=== PATIENT | male | born 1985 | race Caucasian/White ===

== ENCOUNTER 2017-01-06 15:16 | Emergency (ER) | payer SELFPAY ==
[~2017-01-06] VITALS: Wt 70.0 kg
[2017-01-06] MEDS ORDERED: LIDOCAINE 1% (MDV) 20 ML INJ SC ONE (18:00)
[2017-01-06] MEDS ORDERED: DIPHTH/TET/ACEL PERTUSS (ADULT) 0.5 ML VIAL IM* ONE (18:30)
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
== END 2017-01-06 18:57 | disposition left against medical advice (07) ==
LOC: FTE 15:16
DX: S31.119A Laceration without foreign body of abdominal wall, unspecified quadrant without penetration into peritoneal cavity, initial encounter (principal); F17.210 Nicotine dependence, cigarettes, uncomplicated; W25.XXXA Contact with sharp glass, initial encounter; Y92.9 Unspecified place or not applicable

== ENCOUNTER 2019-03-27 23:39 | Emergency (ER) | payer SELFPAY ==
[~2019-03-27] VITALS: Ht 170.2 cm; Wt 72.7 kg
[2019-03-27 23:48] VITALS: Ht 170.2 cm; Wt 72.7 kg
[2019-03-28] MEDS ORDERED: ONDANSETRON 4 MG INJ IV STA (00:06)
[2019-03-28] MEDS ORDERED: HYDROmorphONE 1 MG/ML SYG IV STA (00:06)
--- NOTE | 2019-03-28 01:07 | ERD ---
ER Documentation Chief Complaint Chief Complaint Hernia pain HPI This 33-year-old male has a chronic history of a right inguinal hernia. He says that he wears a tight belt around this area to keep it inside of the abdomen but that he said he took a shower and waited too long to put the belt back on and the hernia came out and started causing him pain with vomiting 1 hour prior to arrival. He is currently in bed laying on his right side and feels minimal pain he says he wants me to give him some pain medication so we can try to push it back in on his own which he frequently does ROS All systems reviewed and are negative except as per history of present illness. Allergies Allergies: Coded Allergies: No Known Allergy (Unverified , 10/05/15) PMhx/Soc History of Surgery: No Anesthesia Reaction: No Hx Neurological Disorder: No Hx Respiratory Disorders: No Hx Cardiac Disorders: No Hx Psychiatric Problems: No Hx Miscellaneous Medical Probl: No Hx Alcohol Use: No Hx Substance Use: Yes (METH ) Hx Tobacco Use: Yes (5 cigarettes a day) Smoking Status: Current some day smoker FmHx Family History: No coronary disease Physical Exam Vitals Vital Signs Date Temp Pulse Resp B/P (MAP) Pulse Ox O2 O2 Flow FiO2 Time Delivery Rate 03/27/19 97.0 94 18 129/78 97 23:48 (95) Physical Exam Const: No acute distress Head: Atraumatic Eyes: Normal Conjunctiva ENT: Normal External Ears, Nose and Mouth. Neck: Full range of motion. No meningismus. Resp: Clear to auscultation bilaterally Cardio: Regular rate and rhythm, no murmurs Abd: Soft, non tender, non distended. Normal bowel sounds, palpable right inguinal hernia that is tender no skin discoloration Skin: No petechiae or rashes Back: No midline or flank tenderness Ext: No cyanosis, or edema Neur: Awake and alert Psych: Normal Mood and Affect Results 24 hrs Current Medications Medications Dose Sig/Abraham Start Time Status Last (Trade) Ordered Route PRN Stop Time Admin Dose Reason Admin 1 mg ONCE STAT 03/28/19 DC 03/28/19 Hydromorphone IV 00:06 00:15 HCl 03/28/19 00:12 (Dilaudid) Ondansetron 4 mg ONCE STAT 03/28/19 DC 03/28/19 HCl (Zofran IV 00:06 00:15 Inj) 03/28/19 00:12 Procedures/MDM Patient was given a milligram of Dilaudid and he was able to self reduce his hernia. The patient says his back place again he is able to stand up and ambulate in the ED without pain Departure Diagnosis: Primary Impression: Hernia Condition: Stable Patient Instructions: Hernia (Inguinal, Ventral, Umbilical) Referrals: HANNA CHAVARRIA MD, APOSTOLOS A. DO March 28, 2019 01:07
[2019-03-28 01:10] VITALS: BP 111/70; PULSE 88; RESP 18
== END 2019-03-28 01:13 | disposition home or self-care (01) ==
LOC: E/R 23:39
DX: K40.90 Unilateral inguinal hernia, without obstruction or gangrene, not specified as recurrent (principal); F17.210 Nicotine dependence, cigarettes, uncomplicated
CPT/HCPCS: 96374; 96375; 99284; J1170; J2405

== ENCOUNTER 2019-06-11 15:29 | Inpatient (IN) | payer MEDICAID ==
[~2019-06-11] VITALS: Ht 162.6 cm; Wt 70.0 kg
[~2019-06-11 15:29] MED LIST: HYDR-3601 PO
[2019-06-11 15:33] VITALS: Ht 162.6 cm; Wt 70.0 kg
[2019-06-11] MEDS ORDERED: SOD CHLORIDE 0.9% 1,000 ML IV STA (15:41)
[2019-06-11] MEDS ORDERED: ONDANSETRON 4 MG INJ IV STA (15:41)
[2019-06-11] MEDS ORDERED: HYDROmorphONE 1 MG/ML SYG IV STA (15:41)
--- NOTE | 2019-06-11 18:03 | ERD ---
ER Documentation Chief Complaint Chief Complaint abdominal pain related to his hernia pain started today HPI 33-year-old gentleman with long-standing history of indirect inguinal hernia who presents to the emergency room with abdominal pain. He states that earlier this morning the hernia came out and he cannot get it back in. The pain is moderate to severe. He denies any nausea or vomiting. No constipation. He has not followed up with a general surgeon as an outpatient. ROS All systems reviewed and are negative except as per history of present illness. Medications Home Meds No Active Prescriptions or Reported Meds Allergies Allergies: Coded Allergies: No Known Allergy (Unverified , 06/11/19) PMhx/Soc History of Surgery: No Anesthesia Reaction: No Hx Neurological Disorder: No Hx Respiratory Disorders: No Hx Cardiac Disorders: No Hx Psychiatric Problems: No Hx Miscellaneous Medical Probl: Yes (LARGE INGUINAL HERNIA TO GROIN) Hx Alcohol Use: No Hx Substance Use: Yes (METH ) Hx Tobacco Use: Yes (5 cigarettes a day) Smoking Status: Current every day smoker FmHx Family History: No diabetes Physical Exam Vitals Vital Signs Date Temp Pulse Resp B/P (MAP) Pulse Ox O2 O2 Flow FiO2 Time Delivery Rate 06/11/19 98.9 98 20 146/92 98 15:33 (110) Physical Exam General: Well developed, well nourished, no acute distress Head: Normocephalic, atraumatic. Eyes: Pupils equally reactive, EOM intact ENT: Moist mucous membranes Neck: Supple, no lymphadenopathy Respiratory: Lungs clear bilaterally, no distress Cardiovascular: RRR, no murmurs, rubs, or gallops Abdominal: Soft, non-tender, non-distended, no peritoneal signs : Large indirect inguinal hernia into the right scrotal contents and sac MSK: No edema, no unilateral swelling, 5/5 strength Neurologic: Alert and oriented, moving all extremities, normal speech, no focal weakness, no cerebellar signs Skin: No rash Psych: Normal mood Result Diagram: 06/11/19 1557 06/11/19 1557 Results 24 hrs Laboratory Tests Test 06/11/19 15:57 06/11/19 16:03 White Blood Count 10.4 10^3/ul Red Blood Count 5.52 10^6/ul Hemoglobin 15.9 g/dl Hematocrit 46.8 % Mean Corpuscular Volume 84.8 fl Mean Corpuscular Hemoglobin 28.8 pg Mean Corpuscular Hemoglobin Concent 34.0 g/dl Red Cell Distribution Width 13.1 % Platelet Count 271 10^3/UL Mean Platelet Volume 9.4 fl Immature Granulocytes % 0.300 % Neutrophils % 80.2 % Lymphocytes % 14.5 % Monocytes % 4.0 % Eosinophils % 0.7 % Basophils % 0.3 % Nucleated Red Blood Cells % 0.0 /100WBC Immature Granulocytes # 0.030 10^3/ul Neutrophils # 8.4 10^3/ul Lymphocytes # 1.5 10^3/ul Monocytes # 0.4 10^3/ul Eosinophils # 0.1 10^3/ul Basophils # 0.0 10^3/ul Nucleated Red Blood Cells # 0.0 10^3/ul Prothrombin Time 12.2 Sec Prothrombin Time Ratio 1.0 INR International Normalized Ratio 0.89 Activated Partial Thromboplast Time 25.6 Sec Sodium Level 141 mmol/L Potassium Level 3.8 mmol/L Chloride Level 103 mmol/L Carbon Dioxide Level 25 mmol/L Anion Gap 13 Blood Urea Nitrogen 19 mg/dl Creatinine 0.76 mg/dl Est Glomerular Filtrat Rate mL/min > 60 mL/min Glucose Level 117 mg/dl Calcium Level 9.6 mg/dl POC Venous Lactate 2.4 mmol/L Current Medications Medications Dose Sig/Abraham Start Time Status Last (Trade) Ordered Route PRN Stop Time Admin Dose Reason Admin Sodium 1,000 ml @ Q1H STAT 06/11/19 DC 06/11/19 Chloride 1,000 mls/hr IV 15:41 06/11/19 16:07 16:40 1 mg ONCE STAT 06/11/19 DC 06/11/19 Hydromorphone IV 15:41 06/11/19 16:06 HCl 15:43 (Dilaudid) Ondansetron 4 mg ONCE STAT 06/11/19 DC 06/11/19 HCl (Zofran IV 15:41 06/11/19 16:06 Inj) 15:43 Procedures/MDM EKG, MONITORS, & DIAGNOSTIC IMAGING: CT abdomen and pelvis: CT concerning for incarcerated hernia LAB INTERPRETATION: I reviewed the laboratory testing and it shows slightly elevated lactic acid MEDICAL DECISION MAKING: Patient presents with inguinal hernia, indirect. Concern for possible incarceration, lower concern for strangulation. Dr. Da Silva, general surgeon on- call was actually in the emergency room and came to the bedside to evaluate the patient. He attempted manual reduction without success. Patient was minimally compliant with the process and procedure. CT imaging will be obtained to rule out incarceration or strangulation. Patient was placed in Trendelenburg and direct gentle pressure was applied for attempted gradual reduction. ER COURSE: * Patient's pain is well controlled but hernia has not been reduced. The pa tient has evidence of incarceration and warrants hospitalization. Dr. Da Silva aware CONSULTATION: None DISPOSITION PLAN: Accepting care team and consultations: I discussed the current laboratory data, diagnostic imaging and emergency care provided. Admitting team: Dr. Padilla Admitting team indication: Insurance directed Departure Diagnosis: Primary Impression: Abdominal pain Abdominal location: generalized Qualified Codes: R10.84 - Generalized abdominal pain Additional Impression: Incarcerated right inguinal hernia Condition: Stable LUIS FERNANDO MELLO MD Jun 11, 2019 18:03
[2019-06-11] MEDS ORDERED: ACETAMINOPHEN 325 MG TAB PO PRN ×2 (18:30→19:30)
[2019-06-11] MEDS ORDERED: ONDANSETRON 4 MG INJ IV PRN ×3 (18:30→23:30)
[2019-06-11] MEDS ORDERED: hydrALAzine 20 MG INJ IV PRN (19:30)
[2019-06-11] MEDS ORDERED: HYDROCODONE/APAP (5/325) TAB PO PRN ×2 (19:30→23:30)
[2019-06-11] MEDS ORDERED: MAGNESIUM HYDROXIDE 30ML CUP PO PRN (19:30)
[2019-06-11] MEDS ORDERED: ALBUTEROL/IPRATROPIUM (NEB) 3 ML AMP HHN PRN (19:30)
[2019-06-11] MEDS ORDERED: LORAZEPAM 2 MG INJ IV PRN (19:30)
[2019-06-11] MEDS ORDERED: NITROGLYCERIN (SL) 0.4 MG TAB SL PRN (19:30)
[2019-06-11] MEDS ORDERED: DOCUSATE SODIUM 100 MG CAP PO PRN (19:30)
[2019-06-11] MEDS ORDERED: morphine 2 MG INJ IV PRN ×2 (19:30→23:30)
[2019-06-11] MEDS ORDERED: NACL 0.9% 3 ML SYG IV SCH (19:30)
[2019-06-11] MEDS ORDERED: BUPIVACAINE 0.25%/EPI (SDV) 30 ML INJ ONE (20:30)
[2019-06-11] MEDS ORDERED: LEVOFLOXACIN 750MG/D5W (PMX) 150 ML IVPB SCH (21:00)
--- NOTE | 2019-06-11 21:14 | CONS ---
Assessment/Plan Assessment/Plan Assessment/Plan (Daily) Incarcerated right inguinal hernia. Patient needs a urgent repair of right inguinal hernia. We discussed risks and benefits were discussed possible side effects, possible complications including but not limited to bleeding, infection, injury to other organs, possible bowel resection, anesthesia complication, hernia recurrence, patient understood risk and benefits and wished to proceed. Consultation Date/Type/Reason Admit Date/Time Jun 11, 2019 at 18:15 Date of Consultation: Jun 11, 2019 Type of Consult Surgical Reason for Consultation Incarcerated inguinal hernia Date/Time of Note DATE: 06/11/19 TIME: 21:12 Hx of Present Illness 53-year-old otherwise healthy male with a 10 years history of right inguinal hernia, never seek surgical attention. Presented with a irreducible bulge in the right groin. Constitutional: no complaints, improved Eyes: no complaints ENT: no complaints Respiratory: no complaints Cardiovascular: no complaints Gastrointestinal: no complaints Genitourinary: no complaints Musculoskeletal: no complaints Skin: no complaints Neurologic: no complaints Endocrine: no complaints Lymphatic: no complaints Psychological: no complaints, nl mood/affect Immunologic: no complaints Past Medical History Medical History: no pertinent history Home Meds No Active Prescriptions or Reported Meds Medications Current Medications Ondansetron HCl (Zofran Inj) 4 mg BRIDGE ORDER PRN IV NAUSEA/VOMITING; Start 06/11/19 at 18:30; Stop 06/12/19 at 18:29 Acetaminophen (Tylenol Tab) 650 mg ER BRIDGE PRN PO .MILD PAIN 1-3 OR TEMP; Start 06/11/19 at 18:30; Stop 06/12/19 at 18:29 IV Flush (NS 3 ml) 3 ml PER PROTOCOL IV ; Start 06/11/19 at 19:30 Ondansetron HCl (Zofran Inj) 4 mg Q6H PRN IV NAUSEA/VOMITING; Start 06/11/19 at 19:30 Acetaminophen (Tylenol Tab) 650 mg Q6H PRN PO .PAIN 1-3 OR TEMP; Start 06/11/19 at 19:30 Acetaminophen/ Hydrocodone Bitart ([place] (5/325)) 1 tab Q6H PRN PO .MOD PAIN 4- 6; Start 06/11/19 at 19:30 Morphine Sulfate (morphine) 2 mg Q4H PRN IV .SEVERE PAIN 7-10; Start 06/11/19 at 19:30 Docusate Sodium (Colace) 100 mg Q12H PRN PO .CONSTIPATION; Start 06/11/19 at 19:30 Magnesium Hydroxide (Milk Of Mag) 30 ml DAILY PRN PO .CONSTIPATION; Start 06/11/19 at 19:30 Heparin Sodium (Porcine) (Heparin (5000 Units/1ml)) 5,000 unit Q12 SC ; Start 06/11/19 at 21:00 Lorazepam (Ativan) 0.5 mg Q6H PRN IV ANXIETY; Start 06/11/19 at 19:30 Sodium Chloride 1,000 ml @ 100 mls/hr Q10H IV ; Start 06/11/19 at 19:23 Albuterol/ Ipratropium (Duoneb) 3 ml Q4H RESP THERAPY PRN HHN SHORTNESS OF BREATH; Start 06/11/19 at 19:30 Levofloxacin/ Dextrose 150 ml @ 100 mls/hr Q24H IVPB ; Start 06/11/19 at 21:00 Hydralazine HCl (Apresoline) 10 mg Q6H PRN IV ELEVATED BLOOD PRESSURE; Start 06/11/19 at 19:30 Nitroglycerin (Nitroglycerin (Sl Tab) 0.4 Mg) 1 tab Q5M PRN SL ANGINA; Start 06/11/19 at 19:30 Allergies: Coded Allergies: No Known Allergy (Unverified , 06/11/19) Social History Smoking Status: Current every day smoker Exam/Review of Systems Exam Vitals Vital Signs Date Temp Pulse Resp B/P (MAP) Pulse Ox O2 O2 Flow FiO2 Time Delivery Rate 06/11/19 98.5 61 20 113/80 100 Room Air 20:30 (91) Constitutional: alert, oriented, well developed Psych: no complaints, nl mood/affect Head: normocephalic, atraumatic Eyes: nl conjunctiva, EOMI, nl lids, nl sclera, PERRL ENMT: nl external ears & nose, nl lips & teeth, nl nasal mucosa & septum Neck: supple, non-tender Respiratory: clear to auscultation, normal air movement Cardiovascular: regular rate and rhythm, nl pulses Gastrointestinal: soft, nl liver, spleen, non-tender, other (Irreducible tender inguinal scrotal hernia in the right groin.) Musculoskeletal: nl extremities to inspection, nl gait and stance Extremities: normal pulses Neurological: S[employer]IENT [employer]OR II-XII intact, nl mental status, nl speech, nl strength Skin: nl turgor; No rash or lesions Lymph: nl lymph nodes Results Result Diagram: 06/11/19 1557 06/11/19 1557 Results 24hrs Laboratory Tests Test 06/11/19 15:57 06/11/19 16:03 White Blood Count 10.4 Red Blood Count 5.52 Hemoglobin 15.9 Hematocrit 46.8 Mean Corpuscular Volume 84.8 Mean Corpuscular Hemoglobin 28.8 L Mean Corpuscular Hemoglobin Concent 34.0 Red Cell Distribution Width 13.1 Platelet Count 271 Mean Platelet Volume 9.4 Immature Granulocytes % 0.300 Neutrophils % 80.2 H Lymphocytes % 14.5 L Monocytes % 4.0 Eosinophils % 0.7 Basophils % 0.3 Nucleated Red Blood Cells % 0.0 Immature Granulocytes # 0.030 Neutrophils # 8.4 H Lymphocytes # 1.5 Monocytes # 0.4 Eosinophils # 0.1 Basophils # 0.0 Nucleated Red Blood Cells # 0.0 Prothrombin Time 12.2 Prothrombin Time Ratio 1.0 INR International Normalized Ratio 0.89 Activated Partial Thromboplast Time 25.6 Sodium Level 141 Potassium Level 3.8 Chloride Level 103 Carbon Dioxide Level 25 Anion Gap 13 Blood Urea Nitrogen 19 Creatinine 0.76 Est Glomerular Filtrat Rate mL/min > 60 Glucose Level 117 Calcium Level 9.6 Free Thyroxine 1.18 POC Venous Lactate 2.4 *H Medications Medication Current Medications Ondansetron HCl (Zofran Inj) 4 mg BRIDGE ORDER PRN IV NAUSEA/VOMITING; Start 06/11/19 at 18:30; Stop 06/12/19 at 18:29 Acetaminophen (Tylenol Tab) 650 mg ER BRIDGE PRN PO .MILD PAIN 1-3 OR TEMP; Start 06/11/19 at 18:30; Stop 06/12/19 at 18:29 IV Flush (NS 3 ml) 3 ml PER PROTOCOL IV ; Start 06/11/19 at 19:30 Ondansetron HCl (Zofran Inj) 4 mg Q6H PRN IV NAUSEA/VOMITING; Start 06/11/19 at 19:30 Acetaminophen (Tylenol Tab) 650 mg Q6H PRN PO .PAIN 1-3 OR TEMP; Start 06/11/19 at 19:30 Acetaminophen/ Hydrocodone Bitart ([place] (5/325)) 1 tab Q6H PRN PO .MOD PAIN 4- 6; Start 06/11/19 at 19:30 Morphine Sulfate (morphine) 2 mg Q4H PRN IV .SEVERE PAIN 7-10; Start 06/11/19 at 19:30 Docusate Sodium (Colace) 100 mg Q12H PRN PO .CONSTIPATION; Start 06/11/19 at 19:30 Magnesium Hydroxide (Milk Of Mag) 30 ml DAILY PRN PO .CONSTIPATION; Start 06/11/19 at 19:30 Heparin Sodium (Porcine) (Heparin (5000 Units/1ml)) 5,000 unit Q12 SC ; Start 06/11/19 at 21:00 Lorazepam (Ativan) 0.5 mg Q6H PRN IV ANXIETY; Start 06/11/19 at 19:30 Sodium Chloride 1,000 ml @ 100 mls/hr Q10H IV ; Start 06/11/19 at 19:23 Albuterol/ Ipratropium (Duoneb) 3 ml Q4H RESP THERAPY PRN HHN SHORTNESS OF BREATH; Start 06/11/19 at 19:30 Levofloxacin/ Dextrose 150 ml @ 100 mls/hr Q24H IVPB ; Start 06/11/19 at 21:00 Hydralazine HCl (Apresoline) 10 mg Q6H PRN IV ELEVATED BLOOD PRESSURE; Start 06/11/19 at 19:30 Nitroglycerin (Nitroglycerin (Sl Tab) 0.4 Mg) 1 tab Q5M PRN SL ANGINA; Start 06/11/19 at 19:30 SYLVIA CLEMENT MD Jun 11, 2019 21:14
--- NOTE | 2019-06-11 21:37 | PREAC ---
Date/Time of Note Date/Time of Note DATE: 06/11/19 TIME: 21:34 Anesthesia Eval and Record Evaluation Time Pre-Procedure Interview DATE: 06/11/19 TIME: 21:34 Age 33 Sex male NPO: 8 hrs Preoperative diagnosis incarcerated right inguinal hernia Planned procedure R inguinal hernia repair with mesh poss bowel mresection Past Medical History Past Medical History: Includes Pulm: Smoking Hx Recreational drugs: Other (met) Surgery & Anesthesia Issues No known issue Meds Anticoagulation: No Beta Geronimo within 24 hr: No Reason Beta Geronimo not given: Pt. not on B-Geronimo No Active Prescriptions or Reported Meds Current Medications Ondansetron HCl (Zofran Inj) 4 mg BRIDGE ORDER PRN IV NAUSEA/VOMITING; Start 06/11/19 at 18:30; Stop 06/12/19 at 18:29 Acetaminophen (Tylenol Tab) 650 mg ER BRIDGE PRN PO .MILD PAIN 1-3 OR TEMP; Start 06/11/19 at 18:30; Stop 06/12/19 at 18:29 IV Flush (NS 3 ml) 3 ml PER PROTOCOL IV ; Start 06/11/19 at 19:30 Ondansetron HCl (Zofran Inj) 4 mg Q6H PRN IV NAUSEA/VOMITING; Start 06/11/19 at 19:30 Acetaminophen (Tylenol Tab) 650 mg Q6H PRN PO .PAIN 1-3 OR TEMP; Start 06/11/19 at 19:30 Acetaminophen/ Hydrocodone Bitart ([place] (5/325)) 1 tab Q6H PRN PO .MOD PAIN 4- 6; Start 06/11/19 at 19:30 Morphine Sulfate (morphine) 2 mg Q4H PRN IV .SEVERE PAIN 7-10; Start 06/11/19 at 19:30 Docusate Sodium (Colace) 100 mg Q12H PRN PO .CONSTIPATION; Start 06/11/19 at 19:30 Magnesium Hydroxide (Milk Of Mag) 30 ml DAILY PRN PO .CONSTIPATION; Start 06/11/19 at 19:30 Heparin Sodium (Porcine) (Heparin (5000 Units/1ml)) 5,000 unit Q12 SC ; Start 06/11/19 at 21:00 Lorazepam (Ativan) 0.5 mg Q6H PRN IV ANXIETY; Start 06/11/19 at 19:30 Sodium Chloride 1,000 ml @ 100 mls/hr Q10H IV ; Start 06/11/19 at 19:23 Albuterol/ Ipratropium (Duoneb) 3 ml Q4H RESP THERAPY PRN HHN SHORTNESS OF BREATH; Start 06/11/19 at 19:30 Levofloxacin/ Dextrose 150 ml @ 100 mls/hr Q24H IVPB ; Start 06/11/19 at 21:00 Hydralazine HCl (Apresoline) 10 mg Q6H PRN IV ELEVATED BLOOD PRESSURE; Start 06/11/19 at 19:30 Nitroglycerin (Nitroglycerin (Sl Tab) 0.4 Mg) 1 tab Q5M PRN SL ANGINA; Start 06/11/19 at 19:30 Meds reviewed: Yes Allergies Coded Allergies: No Known Allergy (Unverified , 06/11/19) Allergies Reviewed: Yes Labs/Studies Labs Reviewed: Reviewed by anesthesiologist Result Diagram: 06/11/19 1557 06/11/19 1557 Laboratory Tests 06/11/19 15:57 test: N/A Pre-procedure Exam Last vitals Vital Signs Date Temp Pulse Resp B/P (MAP) Pulse Ox O2 O2 Flow FiO2 Time Delivery Rate 06/11/19 98.5 61 20 113/80 100 Room Air 20:30 (91) Airway: Adequate mouth opening Mallampati: Mallampati I Teeth: Normal Lung: Normal Heart: Normal ASA Physical Status ASA physical status: 2 Emergency: None Planned Anesthetic General/MAC: ETT Nerve block: TAP (bilateral) Planned Pain Management Single shot nerve block, Parenteral pain med Pre-operative Attestations Prior to commencing anesthesia and surgery, the patient was re-evaluated, there was verification of: *The patient's identity *The results of appropriate recent lab work and preoperative vital signs *The above evaluation not changing prior to induction *Anesthetic plan, risk benefits, alternative and complications discussed with patient/family; questions answered; patient/family understands, accepts and wishes to proceed. SHANNON THOMAS MD Jun 11, 2019 21:37
[2019-06-11] MEDS ORDERED: PROPOFOL 20 ML ONE (21:42)
[2019-06-11] MEDS ORDERED: MIDAZOLAM 1 MG/ML 2 ML INJ ONE (21:42)
[2019-06-11] MEDS ORDERED: SUCCINYLCHOLINE CHLORIDE 100 MG/5 ML SYG IV ONE (21:42)
[2019-06-11] MEDS ORDERED: METOCLOPRAMIDE 10 MG INJ ONE (21:43)
[2019-06-11] MEDS: SOD CHLORIDE 0.9% 1,000 ML IV SCH (21:44)
[2019-06-11] MEDS ORDERED: ONDANSETRON 4 MG INJ ONE (22:01)
[2019-06-11] MEDS ORDERED: CEFAZOLIN 1 GM INJ ONE (22:04)
[2019-06-11] MEDS ORDERED: ETOMIDATE 20 MG INJ ONE (22:22)
[2019-06-11] MEDS ORDERED: ROCURONIUM 50 MG INJ ONE (22:22)
[2019-06-11] MEDS ORDERED: BACITRACIN 50000 UNITS INJ ONE (22:34)
[2019-06-11] MEDS ORDERED: POLYMYXIN B 500000 UNIT INJ ONE (22:35)
[2019-06-11] MEDS ORDERED: ROPIVACAINE 0.5 % 30 ML VIAL ONE (22:57)
[2019-06-11] MEDS ORDERED: GLYCOPYRROLATE 0.4 MG INJ ONE (23:10)
[2019-06-11] MEDS ORDERED: NEOSTIGMINE 3 MG/3 ML SYRINGE ONE (23:10)
--- NOTE | 2019-06-11 23:21 | OPR ---
Date/Time of Note Date/Time of Note DATE: 06/11/19 TIME: 23:16 Operative Report Procedure Date: Jun 11, 2019 Preoperative Diagnosis Incarcerated right inguinal hernia Postoperative Diagnosis Incarcerated right inguinal hernia, indirect, cord lipoma. Operation/Procedure Performed Repair of the incarcerated right inguinal indirect hernia. Excision of the cord lipoma. Surgeon see signature line Repeater Operator None Anesthesia Type: general Anesthesiologist: SHANNON THOMAS MD Estimated Blood Loss: minimal Transfusion none Specimen Specimen is the hernia sac and cord lipoma Grafts/Implants none Complications none Pt Condition Post Procedure: stable Disposition: PACU Indications Incarcerated right inguinal hernia with elevated lactate. Procedure Description The patient was brought to operating room positioned supine general endotracheal anesthesia was induced. The urinary bladder was decompressed with a Patton catheter. Prophylaxis antibiotics were given. The abdomen was prepped and draped in usual sterile fashion. After injection of local anesthetic in the right groin the transverse incision was performed that was carried down to the external oblique aponeurosis. The external oblique aponeurosis was opened along its fibers. The external ring was divided. After that I was able to pull out the hernia sac of the scrotum. The hernia sac was opened the small bowel was examined and it was found to be viable the incarcerated part of the cecum was also examined and was also found to be viable. The bowel was reduced back to the abdominal cavity. The hernia sac was dissected off the cord structures taking care to avoid injury to nerves. After that the hernia sac was suture ligated and amputated. The stump of the sac was reduced into the preperitoneal area. After that the hemostasis was confirmed and the wound was irrigated with antibiotics. The piece of keyhole Prolene mesh was placed on the floor of the inguinal canal and secured to the pubis and inguinal ligament with running 2-0 Ethibond suture. In addition the upper part of the mesh was secured with a loose interrupted sutures to the conjoined ligament. The new internal ring was created by approximating the limbs of the mesh and suturing it down to the inguinal ligament. Before placement of the mesh the cord lipoma was identified was dissected off and excised. Hemostasis was again confirmed the the wound was irrigated with antibiotics. The external oblique aponeurosis was closed over the cord structures with running 2-0 Vicryl suture. The subcutaneous tissue was approximated with interrupted 3-0 Vicryl sutures. The skin was closed with running 4-0 Monocryl sutures. Sterile dressing was applied. Next instrument and sponge counts were correct x2. Patient was extubated and tr ansferred to recovery room. Before that the Patton catheter was removed. SYLVIA CLEMENT MD Jun 11, 2019 23:21
[2019-06-11] MEDS ORDERED: KETOROLAC 30 MG INJ ONE (23:26)
[2019-06-11 23:30] VITALS: BP 135/75; PULSE 77; RESP 20
[2019-06-11] MEDS ORDERED: CEFTRIAXONE 1 GM/50 ML (PMX) 50 ML IVPB SCH (23:30)
[2019-06-11] MEDS ORDERED: DIPHENHYDRAMINE 50 MG INJ IV PRN (23:30)
[2019-06-11] MEDS ORDERED: KETOROLAC 30 MG INJ IV PRN (23:30)
[2019-06-11] MEDS ORDERED: BETHANECHOL 25 MG TAB PO PRN (23:30)
[2019-06-11] MEDS ORDERED: HYDROmorphONE 0.5 MG/0.5 ML SYG IV PRN (23:30)
[2019-06-11] MEDS ORDERED: DIPHENHYDRAMINE 25 MG CAP PO PRN (23:30)
[2019-06-11] MEDS ORDERED: METOCLOPRAMIDE 10 MG INJ IV PRN (23:30)
[2019-06-11 23:35] VITALS: BP 148/77; PULSE 78; RESP 15
[2019-06-11 23:40] VITALS: BP 135/79; PULSE 66; RESP 14
[2019-06-11 23:45] VITALS: BP 133/85; PULSE 66; RESP 14
[2019-06-11 23:55] VITALS: BP 132/84; PULSE 72; RESP 17
[2019-06-12] VITALS: BP 136/80; PULSE 98; RESP 17
[2019-06-12 00:05] VITALS: BP 133/85; PULSE 68; RESP 17
[2019-06-12 00:10] VITALS: BP 140/83; PULSE 92; RESP 14
[2019-06-12 00:15] VITALS: BP 136/87; PULSE 68; RESP 16
[2019-06-12] MEDS: HEPARIN 5,000 UNIT/1 ML VIAL SC SCH ×2 (01:01→09:56)
[2019-06-12] MEDS: D5W-0.45 NACL + KCL 20 MEQ 1,000 ML IV SCH ×2 (01:12→09:12)
[2019-06-12] MEDS: SOD CHLORIDE 0.9% 1,000 ML IV SCH (05:23)
--- NOTE | 2019-06-12 08:08 | HP ---
Date/Time of Note Date/Time of Note DATE: 06/12/19 TIME: 08:03 Assessment/Plan VTE Prophylaxis Risk score (from Ns)>0 risk: 2 SCD applied (from Ns): Yes Pharmacological prophylaxis: NA/contraindicated Pharm contraindication: low risk/ambulating, other (Just had surgery for incarcerated hernia) Lines/Catheters IV [facility]ter [facility] (from [facility]): Peripheral IV Assessment/Plan Assessment/Plan 33-year-old male with a history of hernia presents with abdominal pain with radiation to his groin. He status post hernia repair, currently in a very stable condition. PLAN -Advance diet as tolerated -As needed pain meds -Encourage early ambulation -Discharge when cleared by surgery Result Diagram: 06/12/19 0445 06/12/19 0445 Results 24hrs Laboratory Tests Test 06/11/19 15:57 06/11/19 16:03 06/12/19 04:45 White Blood Count 10.4 10.7 Red Blood Count 5.52 4.46 L Hemoglobin 15.9 13.2 L Hematocrit 46.8 38.6 L Mean Corpuscular Volume 84.8 86.5 Mean Corpuscular Hemoglobin 28.8 L 29.6 Mean Corpuscular Hemoglobin Concent 34.0 34.2 Red Cell Distribution Width 13.1 13.2 Platelet Count 271 226 Mean Platelet Volume 9.4 9.5 Immature Granulocytes % 0.300 0.400 Neutrophils % 80.2 H 68.9 Lymphocytes % 14.5 L 20.5 Monocytes % 4.0 8.4 Eosinophils % 0.7 1.5 Basophils % 0.3 0.3 Nucleated Red Blood Cells % 0.0 0.0 Immature Granulocytes # 0.030 0.040 H Neutrophils # 8.4 H 7.4 Lymphocytes # 1.5 2.2 Monocytes # 0.4 0.9 Eosinophils # 0.1 0.2 Basophils # 0.0 0.0 Nucleated Red Blood Cells # 0.0 0.0 Prothrombin Time 12.2 Prothrombin Time Ratio 1.0 INR International Normalized Ratio 0.89 Activated Partial Thromboplast Time 25.6 Sodium Level 141 138 Potassium Level 3.8 4.0 Chloride Level 103 103 Carbon Dioxide Level 25 29 Anion Gap 13 6 Blood Urea Nitrogen 19 15 Creatinine 0.76 0.75 Est Glomerular Filtrat Rate mL/min > 60 > 60 Glucose Level 117 100 Calcium Level 9.6 8.4 Free Thyroxine 1.18 POC Venous Lactate 2.4 *H Phosphorus Level 4.2 Magnesium Level 1.7 Triglycerides Level 43 Cholesterol Level 119 LDL Cholesterol, Calculated 78 HDL Cholesterol 32 Cholesterol/HDL Ratio 3.7 Thyroid Stimulating Hormone (TSH) 1.170 HPI/ROS Admit Date/Time Admit Date/Time Jun 11, 2019 at 18:15 Hx of Present Illness Patient is a 33-year-old male with a history of hernia who presented to ER complaining of abdominal pain radiating to his groin. Imaging in the ER with findings consistent with incarcerated hernia involving the cecum and distal ileum with adjacent fat stranding and fluid. Patient already underwent repair of the incarcerated hernia. Currently he is feeling well. Denies abdominal pain, nausea/vomiting. He tolerated liquid diet. He is not sure whether or not he has been passing gas. He is basically however soft. Patient asked whether or not he is going to be discharged today saying that he has a 15-year-old Chihuahua and a 5-year-old daughter that needs his attention. PMH/Family/Social Past Medical History Medical History: other (See HPI) Medications Current Medications Ondansetron HCl (Zofran Inj) 4 mg BRIDGE ORDER PRN IV NAUSEA/VOMITING; Start 06/11/19 at 18:30; Stop 06/12/19 at 18:29 Acetaminophen (Tylenol Tab) 650 mg ER BRIDGE PRN PO .MILD PAIN 1-3 OR TEMP; Start 06/11/19 at 18:30; Stop 06/12/19 at 18:29 IV Flush (NS 3 ml) 3 ml PER PROTOCOL IV Last administered on 06/12/19at 01:13; Admin Dose 3 ML; Start 06/11/19 at 19:30 Ondansetron HCl (Zofran Inj) 4 mg Q6H PRN IV NAUSEA/VOMITING; Start 06/11/19 at 19:30 Acetaminophen (Tylenol Tab) 650 mg Q6H PRN PO .PAIN 1-3 OR TEMP; Start 06/11/19 at 19:30 Acetaminophen/ Hydrocodone Bitart (Severn (5/325)) 1 tab Q6H PRN PO .MOD PAIN 4- 6; Start 06/11/19 at 19:30 Morphine Sulfate (morphine) 2 mg Q4H PRN IV .SEVERE PAIN 7-10; Start 06/11/19 at 19:30 Docusate Sodium (Colace) 100 mg Q12H PRN PO .CONSTIPATION; Start 06/11/19 at 19:30 Magnesium Hydroxide (Milk Of Mag) 30 ml DAILY PRN PO .CONSTIPATION; Start 06/11/19 at 19:30 Heparin Sodium (Porcine) (Heparin (5000 Units/1ml)) 5,000 unit Q12 SC Last administered on 06/12/19at 01:01; Admin Dose 5,000 UNIT; Start 06/11/19 at 21:00 Lorazepam (Ativan) 0.5 mg Q6H PRN IV ANXIETY; Start 06/11/19 at 19:30 Sodium Chloride 1,000 ml @ 100 mls/hr Q10H IV ; Start 06/11/19 at 19:23 Albuterol/ Ipratropium (Duoneb) 3 ml Q4H RESP THERAPY PRN HHN SHORTNESS OF BREATH; Start 06/11/19 at 19:30 Levofloxacin/ Dextrose 150 ml @ 100 mls/hr Q24H IVPB Last administered on 06/12/19at 02:21; Admin Dose 100 MLS/HR; Start 06/11/19 at 21:00 Hydralazine HCl (Apresoline) 10 mg Q6H PRN IV ELEVATED BLOOD PRESSURE; Start 06/11/19 at 19:30 Nitroglycerin (Nitroglycerin (Sl Tab) 0.4 Mg) 1 tab Q5M PRN SL ANGINA; Start 06/11/19 at 19:30 Ceftriaxone Sodium 50 ml @ 100 mls/hr Q24H IVPB Last administered on 06/12/19at 01:05; Admin Dose 100 MLS/HR; Start 06/11/19 at 23:30 Metoclopramide HCl (Reglan) 10 mg Q6H PRN IV NAUSEA AND/OR VOMITING; Start 06/11/19 at 23:30 Ondansetron HCl (Zofran Inj) 4 mg Q6H PRN IV NAUSEA AND/OR VOMITING; Start 06/11/19 at 23:30 Ketorolac Tromethamine (Toradol) 30 mg Q6H PRN IV PAIN; Start 06/11/19 at 23:30; Stop 06/14/19 at 23:29 Hydromorphone HCl (Dilaudid) 0.5 mg Q4H PRN IV PAIN LEVEL 8-10; Start 06/11/19 at 23:30 Morphine Sulfate (morphine) 2 mg Q2H PRN IV PAIN LEVEL 8-10; Start 06/11/19 at 23:30 Acetaminophen/ Hydrocodone Bitart (Severn (5/325)) 1 tab Q6H PRN PO PAIN LEVEL 4-7; Start 06/11/19 at 23:30 Potassium Chloride/Dextrose/ Sod Cl 1,000 ml @ 100 mls/hr Q10H IV Last administered on 06/12/19at 01:12; Admin Dose 100 MLS/HR; Start 06/11/19 at 23:12 Diphenhydramine HCl (Benadryl) 25 mg Q6H PRN IV PRURITUS; Start 06/11/19 at 23:3 0 Diphenhydramine HCl (Benadryl) 25 mg Q6H PRN PO PRURITUS; Start 06/11/19 at 23:30 Bethanechol Chloride (Urecholine) 25 mg URINARY CATH D/C PRN PO UNABLE TO VOID; Start 06/11/19 at 23:30 Coded Allergies: No Known Allergy (Unverified , 06/11/19) Past Surgical History Past Surgical Hx: other (See HPI) Family History Significant Family History: no pertinent family hx Social History Alcohol Use: occasionally Smoking Status: Current some day smoker Drug Use: other (Meth) Exam/Review of Systems Vital Signs Vitals Vital Signs Date Temp Pulse Resp B/P (MAP) Pulse Ox O2 O2 Flow FiO2 Time Delivery Rate 06/12/19 68 16 136/87 99 Room Air 00:15 (103) 06/11/19 98.3 23:40 Intake and Output 06/11/19 06/11/19 06/12/19 1515:00 23:00 07:00 IntakeIntake Total 3060 ml OutputOutput Total 320 ml BalanceBalance 2740 ml Exam Constitutional: alert, oriented, well developed Head: normocephalic, atraumatic Eyes: EOMI, PERRL Respiratory: clear to auscultation, normal air movement Cardiovascular: regular rate and rhythm, nl pulses Gastrointestinal: soft, other (Surgical site is covered. Abdomen is soft, nontender) Extremities: normal pulses JAKOB COHEN MD Jun 12, 2019 08:08
[2019-06-12 08:35] VITALS: BP 118/77; PULSE 114; RESP 18
--- NOTE | 2019-06-12 10:20 | PAC ---
Date/Time of Note Date/Time of Note DATE: 06/12/19 TIME: 10:19 Post-Anesthesia Notes Post-Anesthesia Note Last documented vital signs Vital Signs Date Temp Pulse Resp B/P (MAP) Pulse Ox O2 O2 Flow FiO2 Time Delivery Rate 06/12/19 98.3 114 18 118/77 99 08:35 (91) 06/12/19 Room Air 00:15 Activity: WNL Respiratory function: WNL Cardiovascular function: WNL Mental status: Baseline Pain reasonably controlled: Yes Hydration appropriate: Yes Nausea/Vomiting absent: No SHANNON THOMAS MD Jun 12, 2019 10:20
--- NOTE | 2019-06-12 10:36 | PDOCDIS ---
Discharge Instructions CONDITION [id number] Patient Condition: [id number] Stable FOLLOW UP/APPOINTMENTS Follow-up Plan 1. Please follow-up with Dr. Charli Da Silva within 1 week, phone number will be provided to you by nurse 2. Please follow-up with your primary care provider. MARY DUARN Jun 12, 2019 10:36
--- NOTE | 2019-06-12 10:38 | DS ---
Date/Time of Note Date/Time of Note DATE: 06/12/19 TIME: 10:38 Discharge Summary Admission/Discharge Info Admit Date/Time Jun 11, 2019 at 18:15 Discharge Date/Time Patient Condition: Stable Hospital Course Patient is a male with a past medical history significant for hernia who presents to [facility] with abdominal and groin pain. Patient was diagnosed with incarcerated hernia and was taken into emergent surgery by general surgeon. Patient is doing very well this morning, surgery cleared patient to be discharged without any antibiotics. Patient's surgeon stated that he received antibiotics just as a prophylactic measure right after surgery. Patient does not need more to buttocks per general surgeon and will be discharged to follow-up with general surgeon within 1 week. Patient doing well, minimal pain, already passing gas, tolerating diet. Discharge diagnosis Incarcerated inguinal hernia Abdominal pain, resolved Lactic acidosis, secondary to above incarcerating hernia Anemia, very mild, monitor Home Meds Active Scripts Hydrocodone Bit-Acetaminophen (Hydrocodone Bit-APAP) 5-325MG Tablet, 1 TAB PO Q6H PRN for PAIN LEVEL 4-7, #10 TAB Prov:MARY DURAN 06/12/19 Follow-up Plan 1. Please follow-up with Dr. Charli Da Silva within 1 week, phone number will be provided to you by nurse 2. Please follow-up with your primary care provider. Primary Care Provider Care Physician No Primary Time spent on discharge: > 30 minutes Pending Labs Laboratory Tests Test 06/11/19 15:57 06/11/19 16:03 06/12/19 04:45 White Blood Count 10.4 10.7 10^3/ul (4.8-10.8) 10^3/ul (4.8-10.8) Red Blood Count 5.52 4.46 10^6/ul (4.70-6.10) 10^6/ul (4.70-6.10 ) Hemoglobin 15.9 13.2 g/dl (14.0-18.0) g/dl (14.0-18.0) Hematocrit 46.8 % (42.0-52.0) 38.6 % (42.0-52.0) Mean Corpuscular 84.8 86.5 Volume fl (82.0-101.0) fl (82.0-101.0) Mean Corpuscular 28.8 pg (29.0-33.0) 29.6 Hemoglobin pg (29.0-33.0) Mean Corpuscular 34.0 34.2 Hemoglobin Concent g/dl (32.0-37.0) g/dl (32.0-37.0) Red Cell 13.1 % (11.5-14.5) 13.2 % (11.5-14.5) Distribution Width Platelet Count 271 226 10^3/UL (140-415) 10^3/UL (140-415) Mean Platelet 9.4 fl (7.4-10.4) 9.5 fl (7.4-10.4) Volume Immature 0.300 0.400 Granulocytes % % (0.001-0.429) % (0.001-0.429) Neutrophils % 80.2 % (39.0-77.0) 68.9 % (39.0-77.0) Lymphocytes % 14.5 % (15.0-51.0) 20.5 % (15.0-51.0) Monocytes % 4.0 % (0.0-11.0) 8.4 % (0.0-11.0) Eosinophils % 0.7 % (0.0-7.0) 1.5 % (0.0-7.0) Basophils % 0.3 % (0.0-2.0) 0.3 % (0.0-2.0) Nucleated Red Blood 0.0 0.0 Cells % /100WBC (0.0-0.0) /100WBC (0.0-0.0) Immature 0.030 0.040 Granulocytes # 10^3/ul (0.0-0.031) 10^3/ul (0.0-0.031 ) Neutrophils # 8.4 7.4 10^3/ul (1.6-7.5) 10^3/ul (1.6-7.5) Lymphocytes # 1.5 2.2 10^3/ul (0.8-2.9) 10^3/ul (0.8-2.9) Monocytes # 0.4 0.9 10^3/ul (0.3-0.9) 10^3/ul (0.3-0.9) Eosinophils # 0.1 0.2 10^3/ul (0.0-0.5) 10^3/ul (0.0-0.5) Basophils # 0.0 0.0 10^3/ul (0.0-0.1) 10^3/ul (0.0-0.1) Nucleated Red Blood 0.0 0.0 Cells # 10^3/ul (0.0-0.0) 10^3/ul (0.0-0.0) Prothrombin Time 12.2 Sec (11.9-14.9) Prothrombin Time 1.0 Ratio INR International 0.89 Normalized Ratio Activated 25.6 Partial Thromboplas Sec (23.0-35.0) t Time Sodium Level 141 138 mmol/L (135-144) mmol/L (135-144) Potassium Level 3.8 4.0 mmol/L (3.5-5.1) mmol/L (3.5-5.1) Chloride Level 103 mmol/L (97-110) 103 mmol/L (97-110) Carbon Dioxide 25 mmol/L (21-31) 29 mmol/L (21-31) Level Anion Gap 13 (5-13) 6 (5-13) Blood Urea 19 mg/dl (7-20) 15 mg/dl (7-20) Nitrogen Creatinine 0.76 0.75 mg/dl (0.61-1.24) mg/dl (0.61-1.24) Est Glomerular > 60 mL/min (>60) > 60 mL/min (>60) Filtrat Rate mL/min Glucose Level 117 mg/dl (70-220) 100 mg/dl (70-220) Calcium Level 9.6 8.4 mg/dl (8.4-10.2) mg/dl (8.4-10.2) Free Thyroxine 1.18 ng/dl (0.79-2.35) POC Venous Lactate 2.4 mmol/L (0.5-2.0) Hemoglobin A1c 5.2 % (0-5.9) Phosphorus Level 4.2 mg/dl (2.5-4.9) Magnesium Level 1.7 mg/dl (1.7-2.5) Triglycerides 43 mg/dl (0-149) Level Cholesterol Level 119 mg/dl (100-200) LDL Cholesterol, 78 mg/dl Calculated HDL Cholesterol 32 mg/dl (28-63) Cholesterol/HDL 3.7 RATIO Ratio Thyroid Stimulating 1.170 Hormone (TSH) MIU/L (0.465-4.680 ) MARY DURAN Jun 12, 2019 10:38
[2019-06-12 11:00] VITALS: PULSE 90
--- NOTE | 2019-06-12 13:19 | PN ---
Date/Time of Note Date/Time of Note DATE: 06/12/19 TIME: 13:18 Assessment/Plan Lines/Catheters IV C[facility]ter Type (from [facility] Peripheral IV Assessment/Plan Assessment/Plan Patient can be safely discharged home. I discussed with the patient the possibility of complications like infection and the mesh is related to the incarcerated bowel. I described to the patient the signs that he needs to observe. Patient was advised to see me immediately if there are any signs of infection. Subjective 24 Hr Interval Summary Patient is postoperative day after urgent repair of the right incarcerated inguinal hernia. Patient is doing well. Stable afebrile. Pain is well controlled. Wound looks clean. Exam/Review of Systems Vital Signs Vitals Vital Signs Date Temp Pulse Resp B/P (MAP) Pulse Ox O2 O2 Flow FiO2 Time Delivery Rate 06/12/19 98.3 114 18 118/77 99 08:35 (91) 06/12/19 Room Air 00:15 Intake and Output 06/11/19 06/11/19 06/12/19 1515:00 23:00 07:00 IntakeIntake Total 3060 ml OutputOutput Total 320 ml BalanceBalance 2740 ml Results Result Diagram: 06/12/19 0445 06/12/19 0445 SYLVIA CLEMENT MD Jun 12, 2019 13:19
== END 2019-06-12 14:10 | disposition home or self-care (01) | DRG 351 ==
LOC: E/R 15:29 → MS1 18:15
PROVIDERS: ADMIT Internal Medicine; ATTEND Internal Medicine
PROC: 0YU50JZ Supplement Right Inguinal Region with Synthetic Substitute, Open Approach (ICD-10-PCS; principal; 2019-06-11 21:00)
DX: K40.30 Unilateral inguinal hernia, with obstruction, without gangrene, not specified as recurrent (principal); E87.2 Acidosis; F17.200 Nicotine dependence, unspecified, uncomplicated; D64.9 Anemia, unspecified
CPT/HCPCS: 36415; 74176; 80048; 80061; 83036; 83605; 83735; 84100; 84439; 84443; 85025; 85610; 85730; 88302; 88304; 93005; 96374; 96375; C1781; J0690; J0696; J1170; J1644; J1885; J1956; J2250; J2405; J2710; J2765; J2795; J3480; J7030